=== PATIENT | female | born 1995 | race Two or more races ===

== ENCOUNTER 2019-03-03 14:41 | Emergency (ER) | payer OTHER ==
[~2019-03-03] VITALS: Ht 165.1 cm; Wt 77.2 kg
[2019-03-03 14:42] VITALS: BP 117/63
[2019-03-03] MEDS ORDERED: KETOROLAC 30 MG/1 ML IM ONE (15:30)
[2019-03-03] MEDS ORDERED: METHOCARBAMOL 750 MG TABLET PO ONE (15:30)
== END 2019-03-03 15:46 | disposition home or self-care (01) ==
LOC: ED 15:45
DX: M41.86 Other forms of scoliosis, lumbar region (principal); M41.84 Other forms of scoliosis, thoracic region
CPT/HCPCS: 99283